=== PATIENT | male | born 1980 | race Caucasian/White ===

== ENCOUNTER 2016-08-09 00:50 | Emergency (ER) | payer OTHER ==
--- NOTE | ~2016-08-09 | CR20 ---
[facility] A Service of [facility] & [facility] RADIOLOGY TEXT RESULTS PATIENT: YONNY DAIGLE LOCATION: SED : 84 UNIT #: [id number] AGE: [address]: Salbador Martinez MD SEX: M ORDER DR: [id number] [place] [id number] E MR#: [id number] Acc #: [id number] NAME: YONNY DAIGLE : 1980 SEX: M STUDY DATE/TIME: 08/09/2016 1:32 UNIT: SED ROOM: STUDY DESCRIPTION: CR Ankle Min 3 Views Lt Attending Physician: Salbador Martinez M.D. Ordering Physician: Salbador Martinez M.D. MEDICAL IMAGING REPORT This report is preliminary unless electronic signature is present. EXAM Left ankle INDICATION Left ankle trauma. Rolled ankle on a sidewalk. FINDINGS Three views of the left ankle without comparison. There is no acute fracture or dislocation. Alignment is anatomic. No foreign body. IMPRESSION Negative left ankle. Dictated by... Ronny Castaneda M.D. THIS IS AN ELECTRONICALLY VERIFIED REPORT Ronny Castaneda M.D. at 08/09/2016 11:38 PM Varun TD: 08/09/2016 11:33 JOB #: [id number] MEDICAL IMAGING REPORT Page 1 of 1
[~2016-08-09 00:50] MED LIST: NO MEDICATIONS; ULTRAM PO
== END 2016-08-09 02:08 | disposition home or self-care (01) ==
LOC: SED 00:50
DX: S93.402A Sprain of unspecified ligament of left ankle, initial encounter (principal); F17.200 Nicotine dependence, unspecified, uncomplicated; X50.1XXA Overexertion from prolonged static or awkward postures, initial encounter; Y92.9 Unspecified place or not applicable
CPT/HCPCS: 73610; 99283